=== PATIENT | male | born 1970 | race Caucasian/White ===

== ENCOUNTER → 2020-04-27 | Outpatient (CLI) | payer OTHER | LOC: MHCPAIN 14:25 | DX: M54.2 Cervicalgia (principal); R51 Headache; M54.81 Occipital neuralgia; G89.29 Other chronic pain; F17.210 Nicotine dependence, cigarettes, uncomplicated | CPT/HCPCS: G0463 ==

== ENCOUNTER → 2020-05-13 | Outpatient (CLI) | payer OTHER | LOC: MHCPAIN 08:54 | DX: M47.812 Spondylosis without myelopathy or radiculopathy, cervical region (principal); M54.2 Cervicalgia; R51 Headache ==

== ENCOUNTER → 2020-05-19 | Outpatient (CLI) | payer OTHER | LOC: MHCPAIN 13:44 | DX: M47.812 Spondylosis without myelopathy or radiculopathy, cervical region (principal); M54.2 Cervicalgia; R51 Headache; G89.29 Other chronic pain; F17.210 Nicotine dependence, cigarettes, uncomplicated | CPT/HCPCS: G0463 ==

== ENCOUNTER → 2020-05-27 | Outpatient (CLI) | payer OTHER | LOC: MHCPAIN 13:34 | DX: M47.812 Spondylosis without myelopathy or radiculopathy, cervical region (principal); M54.2 Cervicalgia; R51 Headache ==

== ENCOUNTER → 2020-06-16 | Outpatient (CLI) | payer OTHER | LOC: MHCPAIN 14:18 | DX: M47.812 Spondylosis without myelopathy or radiculopathy, cervical region (principal); M54.2 Cervicalgia; R51 Headache; G89.29 Other chronic pain; F17.210 Nicotine dependence, cigarettes, uncomplicated | CPT/HCPCS: G0463 ==

== ENCOUNTER → 2020-07-08 | Outpatient (CLI) | payer OTHER | LOC: MHCPAIN 12:40 | DX: M47.812 Spondylosis without myelopathy or radiculopathy, cervical region (principal); M54.2 Cervicalgia; R51 Headache | CPT/HCPCS: J1100; J2250; J3010 ==

== ENCOUNTER → 2020-07-27 | Outpatient (CLI) | payer OTHER | LOC: MHCPAIN 14:46 | DX: M47.812 Spondylosis without myelopathy or radiculopathy, cervical region (principal); M54.2 Cervicalgia; R51 Headache; G89.29 Other chronic pain | CPT/HCPCS: G0463 ==

== ENCOUNTER → 2020-08-05 | Outpatient (CLI) | payer OTHER | LOC: MHCPAIN 12:59 | DX: M47.812 Spondylosis without myelopathy or radiculopathy, cervical region (principal); M54.2 Cervicalgia; R51 Headache ==

== ENCOUNTER → 2020-09-16 | Outpatient (CLI) | payer OTHER | LOC: MHCPAIN 09-09 16:28 | DX: M47.812 Spondylosis without myelopathy or radiculopathy, cervical region (principal); M54.2 Cervicalgia; R51.9 Headache, unspecified | CPT/HCPCS: J0461 ==

== ENCOUNTER → 2020-10-25 | Outpatient (CLI) | payer OTHER | LOC: MHCPAIN 13:32 | DX: M47.812 Spondylosis without myelopathy or radiculopathy, cervical region (principal); M54.2 Cervicalgia; R51.9 Headache, unspecified; G89.29 Other chronic pain | CPT/HCPCS: G0463; J0461; J2250; J3010 ==

== ENCOUNTER → 2020-12-28 | Outpatient (CLI) | payer OTHER | LOC: MHCPAIN 14:47 | DX: M47.812 Spondylosis without myelopathy or radiculopathy, cervical region (principal); M54.2 Cervicalgia; R51.9 Headache, unspecified; F17.210 Nicotine dependence, cigarettes, uncomplicated | CPT/HCPCS: G0463 ==